=== PATIENT | female | born 1995 | race American Indian/Alaskan Native ===

== ENCOUNTER 2020-01-24 16:13 | Outpatient (CLI) | payer MEDICAID ==
[2020-01-24 16:38] VITALS: BP 105/54
[2020-01-24 16:43] LABS: Bacteria,Urine 1+ /HPF (Negative); Bilirubin,Urine NEG (Negative); Blood,Urine NEG (Negative); Color,Urine Straw (Yellow); Mucus,Urine FEW /HPF; Protein,Urine <15 mg/dL mg/dL (Negative); Urobilinogen,Urine < 2.0 mg/dL (<2.0)
[2020-01-24] MEDS ORDERED: LACTATED RINGERS 1,000 ML IV SCH (17:00)
== END 2020-01-24 17:56 | disposition home or self-care (01) ==
LOC: TRG 16:13 → APU 16:13 → TRG 17:56
PROVIDERS: ATTEND Obstetrics & Gynecology
DX: O62.9 Abnormality of forces of labor, unspecified (principal); O99.013 Anemia complicating pregnancy, third trimester; Z3A.34 34 weeks gestation of pregnancy
CPT/HCPCS: 59025; 81001; 96360; 96361; J7120

== ENCOUNTER 2020-02-11 19:16 | Outpatient (CLI) | payer MEDICAID ==
[2020-02-11] MEDS ORDERED: LACTATED RINGERS 1,000 ML ONE (19:50)
[2020-02-11] MEDS ORDERED: LACTATED RINGERS 500 ML IV ONE (20:00)
[2020-02-11] MEDS ORDERED: TERBUTALINE 1 MG/1 ML INJ ONE (21:12)
[2020-02-11] MEDS ORDERED: TERBUTALINE 1 MG/1 ML INJ SUB-Q ONE (21:15)
[2020-02-11 21:19] VITALS: BP 108/52
--- NOTE | 2020-02-11 23:55 | Ultrasound Report ---
ULTRASOUND OBSTETRIC, limited Indication: Check amniotic fluid index and biophysical profile Findings: Limited ultrasound was performed. The amniotic fluid index is 11.6 cm. heart rate is 160 bpm. T he placenta is located anteriorly. Impression: Amniotic fluid index is 11.6 cm. Biophysical profile INDICATION: COMPARISON: None FINDINGS: breathing movement: 2/2 movement: 2/2 posture and tone: 2/2 Qualitative amniotic fluid volume: 2/2 IMPRESSION: Total score for biophysical profile is 8/8 heart rate is 160 bpm Signer Name: Isaac Ann MD Signed: 02/11/2020 11:51 PM Workstation Name: [id number]
== END 2020-02-12 00:08 | disposition home or self-care (01) ==
LOC: TRG 19:16 → APU 19:17 → TRG 02-12 00:08
PROVIDERS: ATTEND Obstetrics & Gynecology
DX: O62.9 Abnormality of forces of labor, unspecified (principal); Z3A.36 36 weeks gestation of pregnancy; Z87.891 Personal history of nicotine dependence
CPT/HCPCS: 59025; 76815; 76819; 96360; J7120; 96372

== ENCOUNTER 2020-02-20 13:07 | Outpatient (CLI) | payer MEDICAID ==
[2020-02-20] MEDS ORDERED: LACTATED RINGERS 1,000 ML IV SCH (15:00)
[2020-02-20 19:14] VITALS: BP 126/83
--- NOTE | 2020-02-22 09:22 | Ultrasound Report ---
ULTRASOUND OBSTETRIC LIMITED ULTRASOUND BIOPHYSICAL PROFILE INDICATION / CLINICAL INFORMATION: non re-assuring FHT. Clinical Gestational Age (GA): 37.6 weeks.days COMPARISON: None available. FINDINGS: BREATHING MOVEMENT = 2 GROSS BODY MOVEMENT = 2 TONE = 2 QUALITATIVE AMNIOTIC FLUID VOLUME = 2 TOTAL BIOPHYSICAL SCORE = 8/8 HEART RATE (beats per minute): 127 AMNIOTIC FLUID INDEX (cm) = 10.4 (normal = 7-24 cm) PRESENTATION: Cephalic. ADDITIONAL FINDINGS: There is questionable dilation of the right renal collecting system. IMPRESSION: 1. Biophysical Score = 8/8 2. Normal amniotic fluid index. 3. Questionable dilation of the right renal collecting system. Signer Name: Víctor Coronado MD Signed: 02/20/2020 6:43 PM Workstation Name: [id number]
== END 2020-02-20 18:31 | disposition home or self-care (01) ==
LOC: TRG 13:07 → APU 13:07 → TRG 18:31
PROVIDERS: ATTEND Obstetrics & Gynecology
DX: O47.1 False labor at or after 37 completed weeks of gestation (principal); Z3A.37 37 weeks gestation of pregnancy
CPT/HCPCS: 59025; 76815; 76819

== ENCOUNTER 2020-02-22 13:26 | Inpatient (IN) | payer MEDICAID ==
[2020-02-22] MEDS ORDERED: LACTATED RINGERS 1,000 ML ONE (15:04)
[2020-02-22] MEDS ORDERED: LIDOCAINE (2%) 20 MG/1 ML VIAL 20 ML MDV INFILTRATI ONE (15:29)
[2020-02-22] MEDS ORDERED: MINERAL OIL 30 ML ORAL LIQD PO PRN (15:29)
[2020-02-22] MEDS ORDERED: ePHEDrine SULFATE 50 MG/1 ML INJ IV PRN (15:29)
[2020-02-22] MEDS ORDERED: fentaNYL 100 MCG/2 ML INJ IV PRN (15:29)
[2020-02-22] MEDS ORDERED: TERBUTALINE 1 MG/1 ML INJ SUB-Q PRN (15:29)
[2020-02-22] MEDS ORDERED: BUTORPHANOL 2 MG/1 ML INJ IV PRN (15:29)
[2020-02-22] MEDS ORDERED: AMPICILLIN/NS 2 GM/100 ML 2 GM/100 ML BAG IV ONE (15:29)
[2020-02-22 15:55] LABS: Hematocrit 35.2 % (30.3-42.9); Hemoglobin 11.7 gm/dl (10.1-14.3); Mean Corpuscular HGB Conc 33 % (30-34); Mean Corpuscular Volume 84 fl (79-97); Platelet Count 301 K/mm3 (140-440); Red Blood Count 4.19 M/mm3 (3.65-5.03); Red Cell Distribution Width 13.3 % (13.2-15.2)
[2020-02-22] MEDS ORDERED: OXYTOCIN DRIP 30 UNITS/500 ML BAG IV SCH ×2 (16:00)
[2020-02-22] MEDS ORDERED: LACTATED RINGERS 1,000 ML IV SCH (16:00)
[2020-02-22] MEDS ORDERED: AMPICILLIN/NS 1 GM/50 ML 1 GM/50 ML BAG IV SCH (18:00)
[2020-02-22] MEDS ORDERED: WITCH HAZEL/ GLYCERIN PAD TP PRN (20:14)
[2020-02-22] MEDS ORDERED: MAGNESIUM HYDROXIDE (MOM) ORAL LIQD UDC PO PRN (20:14)
[2020-02-22] MEDS ORDERED: PROMETHAZINE 25 MG TAB PO PRN (20:14)
[2020-02-22] MEDS ORDERED: diphenhydrAMINE 25 MG CAP PO PRN (20:14)
[2020-02-22] MEDS ORDERED: LANOLIN/ZINC/DIMETHICONE (LANSINOH) 7 GM TP PRN (20:14)
[2020-02-22] MEDS ORDERED: oxyCODONE /ACETAMINOPHEN 5-325MG TAB PO PRN (20:14)
--- NOTE | 2020-02-22 20:26 | History and Physical Report ---
History of Present Illness Date of examination: 02/22/20 Date of admission: 02/22/20 15:30 Chief complaint: Labor Pains History of present illness: Early entry to care, co-managed with [facility] and Cardiology. Non-compliant with Neurology Consult. Hx of Seizure disorder, taking Keppra 500mg PO BID. 1st trimester complicated by N&V managed with Zofran and Phenergan. 2nd trimester complicated by a Seizure. 3rd trimester complicated by +Chlamydia (treated; DEYSI is Negative). 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 History: chlamydia, herpes Family/Genetic History: Down's syndrome (sister), congenital heart defect (brother) Social history: no significant social history, single - Obstetrical History Expected Date of Delivery: 03/06/20 Actual Gestation: 38 Week(s) 1 Day(s) : 3 Para: 2 Number of Living Children: 2 #1 Infant Gender: Male year: 2,[birth year] Birthweight: 3.062 kg Method of Delivery: Vaginal Gestational age at delivery: 39 Complications: none #2 Gender: Female year: 2,[birth year] Birthweight: 2.92 kg Method of Delivery: Vaginal Gestational age at delivery: 38 Complications: other (seizures) Medications and Allergies Allergies Allergy/AdvReac Type Severity Reaction Status Date / Time No Known Allergies Allergy Verified 01/24/20 16:21 Active Meds: Active Medications Butorphanol Tartrate (Stadol) 2 mg IV Q2H PRN PRN Reason: Pain , Severe (7-10) Last Admin: 02/22/20 17:30 Dose: 2 mg Documented by: Diphenhydramine HCl (Benadryl) 25 mg PO Q6H PRN PRN Reason: Itching Docusate Sodium (Colace) 100 mg PO BID MARCO Ephedrine Sulfate (Ephedrine Sulfate) 10 mg IV Q2M PRN PRN Reason: Hypotension Fentanyl (Sublimaze) 100 mcg IV Q2H PRN PRN Reason: Pain,Severe (7-10) LABOR PAIN Last Admin: 02/22/20 20:10 Dose: 100 mcg Documented by: Oxytocin/Sodium Chloride (Pitocin/Ns 30 Unit/500ml) 30 units in 500 mls @ 2 mls/hr IV TITR MARCO; Protocol Lactated Ringer's (Lactated Ringers) 1,000 mls @ 125 mls/hr IV DIRECT MARCO Last Admin: 02/22/20 18:50 Dose: 125 mls/hr Documented by: Oxytocin/Sodium Chloride (Pitocin/Ns 30 Unit/500ml) 30 units in 500 mls @ 0 mls/hr IV TITR [facility]; Protocol Last Admin: 02/22/20 20:12 Dose: 40 ml/hr, 40 mls/hr Documented by: Ampicillin Sodium (Ampicillin/Ns 1 Gm/50 Ml) 1 gm in 50 mls @ 100 mls/hr IV Q4HR MARCO; Protocol Ibuprofen (Ibuprofen) 600 mg PO Q6H MARCO Magnesium Hydroxide (Milk Of Magnesia) 30 ml PO HS PRN PRN Reason: Constipation Mineral Oil (Mineral Oil) 30 ml PO QHS PRN PRN Reason: Constipation Multi-Ingredient Ointment (Lansinoh) 1 applic TP PRN PRN PRN Reason: Sore Nipples Multivitamins/Iron/Calcium ( Vitamin) 1 each PO QDAY MARCO Oxycodone/Acetaminophen (Percocet 5/325) 1 tab PO Q6H PRN PRN Reason: Pain, Moderate (4-6) Promethazine HCl (Phenergan) 25 mg PO Q6H PRN PRN Reason: Nausea And Vomiting Sodium Chloride (Sodium Chloride Flush Syringe 10 Ml) 10 ml IV PRN NR Terbutaline Sulfate (Brethine) 0.25 mg SUB-Q ONCE PRN PRN Reason: Hyperstimulation/Hypertonicity Witch Leigh/Glycerin (Tucks Pad) 1 each TP PRN PRN PRN Reason: Hemorrhoid/cleansing/soothing Review of Systems All systems: negative - Vital Signs Vital signs: Vital Signs Pulse Pulse Ox 86 100 02/22/20 13:59 02/22/20 13:59 Temp Pulse Resp BP Pulse Ox 98.2 F 88 18 105/60 100 02/22/20 17:11 02/22/20 19:46 02/22/20 17:30 02/22/20 19:46 02/22/20 15:35 - Physical Exam Breasts: Positive: normal Cardiovascular: Regular rate Lungs: Positive: Clear to auscultation, Normal air movement Abdomen: Positive: normal appearance, soft, normal bowel sounds Genitourinary (Female): Positive: normal external genitalia, normal perenium Vagina: Positive: normal moisture Uterus: Positive: enlarged Anus/Rectum: Positive: normal perianal skin Extremities: Positive: normal - Obstetrical FHR: category 1 Uterine Contraction Monitor Mode: External Cervical Dilatation: 8 (large amount of meconium stained @ 1948) Cervical Effacement Percentage: 90 station: 0 Uterine Contraction Pattern: Regular Uterine Tone Measurement Phase: Resting Uterine Contraction Intensity: Moderate Results Result Diagrams: 02/22/20 15:15 Abnormal lab results 02/22/20 Range/Units 15:15 WBC 13.4 H (4.5-11.0) K/mm3 All other labs normal. Assessment and Plan A: IUP @ 38 1/7 Weeks Category I Tracing Active Labor GBS Positive P: Admit to L&D Per Routine Orders GBS Prophylaxis AROM Anticipate
--- NOTE | 2020-02-22 20:41 | Procedure Note ---
OB Delivery Note - Delivery Date of Delivery: 02/[birth year]/20 (1954) Surgeon: DEVANTE TOLBERT Estimated blood loss: 100cc - Vaginal Delivery presentation: vertex Delivery position: OA Intrapartum events: meconium Delivery induction: none Delivery augmentation: rupture of membranes Delivery monitor: external FHT, external uterine Route of delivery: Delivery placenta: spontaneous Delivery cord: nuchal cord, 3 umbilical vessels Episiotomy: none Delivery laceration: none Anesthesia: none Delivery comments: of a live 6'9 female infant over a intact perineum under IV pain control with Apgars of 8 and 9 at 1954 on 02/22/2020. Nuchal cord x 1 easily manually reduced on the perineum prior to delivery of the anterior shoulder. Infant not stimulated, Cord double clamped and cut by POLINA Tolbert, and handed directly to awaiting NICU/RESP team due to meconium stained fluids. Spontaneous delivery of the placenta complete and intact with Mcghee side presenting at 2001. Fundus is firm and midline located 4 below the U. Lochia is scant. GBS prophylaxis x 1. - A at 1 minute: 8 at 5 minutes: 9 Gender: Female (6'9)
[2020-02-22] MEDS: PRENATAL VIT27-FE FUMARATE-FOLIC ACID VIT TAB PO SCH (22:51)
[2020-02-22] MEDS: DOCUSATE SODIUM 100 MG CAP PO SCH (22:51)
[2020-02-22] MEDS: IBUPROFEN 600 MG TAB PO SCH (23:00)
[2020-02-23] MEDS: IBUPROFEN 600 MG TAB PO SCH ×2 (06:28→12:05)
[2020-02-23 12:44] LABS: Hematocrit 31.9 % (30.3-42.9); Hemoglobin 10.6 gm/dl (10.1-14.3)
[2020-02-23] MEDS: PRENATAL VIT27-FE FUMARATE-FOLIC ACID VIT TAB PO SCH (15:12)
[2020-02-23] MEDS: DOCUSATE SODIUM 100 MG CAP PO SCH ×2 (15:12→22:20)
--- NOTE | 2020-02-24 07:03 | Discharge Summary ---
Providers - Providers Date of Admission: 02/22/20 15:30 Date of discharge: 02/24/20 Attending physician: GREGORIO BROWN MD Primary care physician: PHARMACEUTICAL DETAILER Hospitalization Reason for admission: active labor Delivery: Episiotomy: none Laceration: none Other procedures: none complications: none Discharge diagnosis: IUP at term delivered baby: female Condition at discharge: Stable Disposition: DC-01 TO HOME OR SELFCARE Plan - Provider Discharge Summary Activity: routine, no sex for 6 weeks, no heavy lifting 4 weeks Diet: routine Instructions: other (cont pnv) Additional instructions: [] Smoking cessation referral if applicable(refer to patient education folder for contact #) [] Refer to [facility]'s [facility] Booklet Call your doctor immediately for: * Fever > 100.5 * Heavy vaginal bleeding ( >1 pad per hour) * Severe persistent headache * Shortness of breath * Reddened, hot, painful area to leg or breast * Drainage or odor from incision. * Keep incision clean and dry at all times and follow doctor's instructions regarding bathing/showering - Follow up plan Follow up: PRIMARY CAREMD [Primary Care Provider] - 6 Weeks
[2020-02-24] MEDS: DOCUSATE SODIUM 100 MG CAP PO SCH (09:44)
[2020-02-24] MEDS: PRENATAL VIT27-FE FUMARATE-FOLIC ACID VIT TAB PO SCH (09:45)
[2020-02-24] MEDS: IBUPROFEN 600 MG TAB PO SCH (09:46)
[2020-02-24 13:18] VITALS: BP 93/52
== END 2020-02-24 13:40 | disposition home or self-care (01) | DRG 775 ==
LOC: TRG 13:26 → APU 13:26 → TRG 15:29 → LD 15:30 → OB 22:28
PROVIDERS: ADMIT Obstetrics & Gynecology; ATTEND Obstetrics & Gynecology
PROC: 10E0XZZ Delivery of Products of Conception, External Approach (ICD-10-PCS; principal; 2020-02-22)
DX: O77.0 Labor and delivery complicated by meconium in amniotic fluid (principal); O99.824 Streptococcus B carrier state complicating childbirth; Z3A.38 38 weeks gestation of pregnancy; Z37.0 Single live birth; O69.81X0 Labor and delivery complicated by cord around neck, without compression, not applicable or unspecified; Z20.828 Contact with and (suspected) exposure to other viral communicable diseases
CPT/HCPCS: 36415; 59025; 76815; 76819; 85014; 85018; 85027; 86592; 86850; 86900; 86901; G0378; J0595; J2590; J3010; J7120; U0003